=== PATIENT | male | born 1960 | race Caucasian/White ===

== ENCOUNTER 2016-12-10 18:41 | Emergency (ER) | payer OTHER ==
[~2016-12-10] VITALS: Ht 172.7 cm; Wt 81.6 kg
[~2016-12-10 18:41] MED LIST: AMOXICILLIN500 MG PO; CYCLOBENZAPRINE5 M3 PO; HYDROCODONE BIT1 T11 PO; PREDNISONE50 MG PO; VICODIN ES 7501 TAB PO
== END 2016-12-10 22:28 | disposition home or self-care (01) ==
LOC: ED 18:41
DX: M54.2 Cervicalgia (principal); R07.81 Pleurodynia; F17.200 Nicotine dependence, unspecified, uncomplicated; Z79.899 Other long term (current) drug therapy; Z88.6 Allergy status to analgesic agent; V49.88XA Car occupant (driver) (passenger) injured in other specified transport accidents, initial encounter; Y93.89 Activity, other specified; Y92.413 State road as the place of occurrence of the external cause; Y99.9 Unspecified external cause status

== ENCOUNTER → 2020-06-11 | Outpatient (CLI) | payer BC | END | disposition home or self-care (01) | LOC: RAD 09:54 | PROVIDERS: ATTEND Internal Medicine | DX: J32.9 Chronic sinusitis, unspecified (principal); R07.81 Pleurodynia ==

== ENCOUNTER 2022-01-12 14:49 | Emergency (ER) | payer OTHER | END 2022-01-12 16:08 | disposition left against medical advice (07) | LOC: ED 14:49 | DX: Z00.8 Encounter for other general examination (principal); Z53.21 Procedure and treatment not carried out due to patient leaving prior to being seen by health care provider ==

== ENCOUNTER 2022-01-12 18:04 | Emergency (ER) | payer OTHER ==
[~2022-01-12] VITALS: Ht 167.6 cm; Wt 65.8 kg
== END 2022-01-12 19:18 | disposition home or self-care (01) ==
LOC: ED 18:04
DX: M70.22 Olecranon bursitis, left elbow (principal); Z88.8 Allergy status to other drugs, medicaments and biological substances; Z79.899 Other long term (current) drug therapy; Y93.89 Activity, other specified

== ENCOUNTER → 2022-01-12 | Outpatient (CLI) | payer OTHER | LOC: RAD 15:30 | PROVIDERS: ATTEND Orthopaedic Surgery | DX: M47.817 Spondylosis without myelopathy or radiculopathy, lumbosacral region (principal) ==

== ENCOUNTER 2022-10-18 11:04 | Emergency (ER) | payer OTHER ==
[~2022-10-18] VITALS: Ht 172.7 cm; Wt 63.5 kg
[2022-10-18 11:46] LABS: BASO % 0.9 % (0.0-1.0); EOS % 0.9 % (1.0-4.0); HEMATOCRIT 41.7 % (42.0-52.0); LYMPH # 0.3 10*3/uL (1.3-4.4); LYMPH % 8.2 % (27.0-41.0); MEAN CELL VOLUME 93.1 fl (80.0-94.0); MEAN CORPUSCULAR HGB 30.8 pg (27.0-31.0); MEAN CORPUSCULAR HGB CONC 33.1 g/dl (33.0-37.0); MEAN PLATELET VOLUME 9.1 fl (9.6-12.3); MONO # 0.5 10*3/uL (0.1-1.0); MONO % 15.7 % (3.0-9.0); NEUT # 2.4 10*3/uL (2.3-7.9); PLATELET COUNT AUTOMATED 153 10*3/uL (130-400); RED BLOOD COUNT 4.48 10*6/uL (4.50-5.90); RED CELL DISTRI WIDTH 13.5 % (0-14.5); WHITE BLOOD COUNT 3.2 10*3/uL (4.8-10.8)
[2022-10-18 11:48] LABS: BILIRUBIN Negative (Negative); BLOOD Negative (Negative); CLARITY Clear (Clear); COLOR Yellow (Yellow); GLUCOSE Negative (Negative); KETONE Negative (Negative); LEUKO ESTERASE Negative (Negative); NITRITE Negative (Negative); SPECIFIC GRAVITY 1.025 (1.001-1.030)
[2022-10-18 11:56] LABS: BACTERIA 1+; MUCOUS 1+
[2022-10-18 12:07] LABS: ALKALINE PHOSPHATASE 86 U/L (46-116); BUN 9 mg/dl (9-23); CHLORIDE 104 mmol/L (98-107); SGPT/ALT 20 U/L (10-49); TOTAL PROTEIN 6.7 gm/dL (6.0-8.0)
[2022-10-18] MEDS ORDERED: CYCLOBENZAPRINE10 MG PO (13:24)
== END 2022-10-18 13:29 | disposition home or self-care (01) ==
LOC: ED 11:04
PROVIDERS: Physician Assistant Medical
DX: S39.012A Strain of muscle, fascia and tendon of lower back, initial encounter (principal); R11.0 Nausea; M19.90 Unspecified osteoarthritis, unspecified site; I10 Essential (primary) hypertension; E78.5 Hyperlipidemia, unspecified; Z88.8 Allergy status to other drugs, medicaments and biological substances; Z90.49 Acquired absence of other specified parts of digestive tract; Z98.890 Other specified postprocedural states; F17.200 Nicotine dependence, unspecified, uncomplicated; X50.1XXA Overexertion from prolonged static or awkward postures, initial encounter; Y93.89 Activity, other specified; Y92.009 Unspecified place in unspecified non-institutional (private) residence as the place of occurrence of the external cause; Y99.0 Civilian activity done for income or pay

== ENCOUNTER → 2022-10-26 | Outpatient (CLI) | payer OTHER ==
[~2022-10-26] MED LIST changes: +CYCLOBENZAPRINE10 MG PO
[2022-10-26 12:42] LABS: BUN 14 mg/dl (9-23); CHLORIDE 102 mmol/L (98-107); POTASSIUM 4.7 mmol/L (3.4-5.1)
== END | disposition home or self-care (01) ==
LOC: LAB 11:58
PROVIDERS: ATTEND Internal Medicine
DX: U07.1 COVID-19 (principal)

== ENCOUNTER 2023-03-26 16:11 | Emergency (ER) | payer OTHER ==
[~2023-03-26] VITALS: Ht 167.6 cm; Wt 64.4 kg
[~2023-03-26 16:11] MED LIST changes: +AMLODIPINE BESYL5 MG PO; +AMOX-CLAV 875-1 EACH PO; +ATORVASTATIN CA20 M1 PO; +COLESTIPOL HYDRO1 GM PO; +DONEPEZIL HYDRO23 M1 PO; +MELOXICAM15 MG PO
== END 2023-03-26 17:00 | disposition home or self-care (01) ==
LOC: ED 16:11
DX: T75.4XXA Electrocution, initial encounter (principal); R73.9 Hyperglycemia, unspecified; E87.1 Hypo-osmolality and hyponatremia; D64.9 Anemia, unspecified; I10 Essential (primary) hypertension; E78.5 Hyperlipidemia, unspecified; F03.90 Unspecified dementia, unspecified severity, without behavioral disturbance, psychotic disturbance, mood disturbance, and anxiety; M19.90 Unspecified osteoarthritis, unspecified site; E78.00 Pure hypercholesterolemia, unspecified; F12.90 Cannabis use, unspecified, uncomplicated; Z88.8 Allergy status to other drugs, medicaments and biological substances; Z98.890 Other specified postprocedural states; Z90.49 Acquired absence of other specified parts of digestive tract; Z72.0 Tobacco use; W86.1XXA Exposure to industrial wiring, appliances and electrical machinery, initial encounter; Y93.89 Activity, other specified; Y92.89 Other specified places as the place of occurrence of the external cause; Y99.0 Civilian activity done for income or pay